=== PATIENT | female | born 1960 | race Caucasian/White ===

== ENCOUNTER 2024-01-27 02:24 | Inpatient (IN) | payer MEDICARE, BC, SELFPAY ==
[2024-01-26 19:22] VITALS: BMI 30.8
[2024-01-26 19:23] VITALS: BP 102/68
[2024-01-26 21:08] VITALS: BP 144/99
[2024-01-26] MEDS: NSS 1000 IV (21:24)
[2024-01-26] MEDS: ZOFRAN 4 MG IV (21:24)
[2024-01-26 21:25] LABS: % Basophils 0.3 % (0-2); % Eosinophils 1.7 % (0-6); % Immature Granulocytes 0.3 % (0-0.5); % Monocytes 6.9 % (1.7-9.3); % Neutrophils 77.8 % (42.2-75.2); Absolute Eosinophils 0.1 10^3/uL (0-0.7); Absolute Lymphocytes 0.9 10^3/uL (1.2-3.4); Absolute Monocytes 0.5 10^3/uL (0.1-0.6); Absolute Neutrophils 5.5 10^3/uL (1.4-6.5); Hematocrit 50.7 % (37.0-47.0); Hemoglobin 17.2 g/dL (12.0-16.0); Mean Corp Hgb Conc. 33.9 g/dL (33.0-37.0); Mean Corpuscular Hgb 31.3 pg (27.0-31.0); Mean Corpuscular Volume 92.2 fL (81.0-99.0); Mean Platelet Volume 9.3 fL (7.4-10.4); Nucleated Red Blood Cells % 0 %; Platelet Count 308 10^3/uL (130-400); Red Cell Dist. Width 13.3 % (11.5-14.5); White Blood Cell Count 7.1 10^3/uL (4.8-10.8)
[2024-01-26] MEDS: DILAUDID 1 MG IV (21:26)
--- NOTE | 2024-01-26 21:33 | ED.GENMED ---
History of Present Illness
General
Chief Complaint: Abdominal Pain
Source: patient
Exam Limitations: none
Time Seen by Provider: 01/26/24 20:27
Nursing documentation reviewed up to this point in time: agreed with
History of Present Illness
History of Present Illness:
63 y/o F with h/o rectal cancer treated with chemo and radiation (not surgical resectioN) 4 years ago in remission
says she started with pain today upper mid abdomen with n/v many times, bilious emesis
she had simliar episode 1 week ago that resolved spontaneously
has been able to pass gas, had bm today that was smaller
no appetite
the pain is constant and severe
never had this pain otherwise previously
no h/o SBO
no h/o pancreatitis
no prior abdomianl surgeries
nothing taken for pain
Past History
Past History
ED Past Medical History: Cancer (rectal) and Hypothyroidism
Social History
Tobacco: Non-smoker
Alcohol: Occasional
Drug: None
Personal:
Living: with family
Review of Systems
Review of Systems
Allergies reviewed?: Yes
All Other Systems: Not applicable
Phy Exam
Physical Exam
Physical Exam:
GENERAL: Alert , uncomfortable, nauseated, moaning,
EYE: pupils equal and reactive
NECK: Supple
ENT: o/p clr, mmm.
CARDIAC: Regular rate and rhythm .
LUNGS: Clear breath sounds bilaterally, no acute respiratory distress, no wheezes/rales/rhonchi
ABDOMEN: Soft, moderate upper abdominal tenderness, mild distention, no r/g, no cvat, normal bowel sounds
NEUROLOGICAL: Alert and oriented, no focal neuro deficits
SKIN: Warm and dry, skin intact.
MUSCULOSKELETAL: No edema, well perfused.
PSYCH: Normal and appropriate interaction.
Course
Orders/Labs/Results
Orders:
Orders
01/26/24 21:07
0.9% Sodium Chloride 1000 ml [Nss] 1,000 ml IV BOLUS
HYDROmorphone [Dilaudid] 1 mg IV NOW STA
Ondansetron Injectable [Zofran] 4 mg IV NOW STA
01/26/24 21:19
Complete Blood Count/With Diff Urgent
Comprehensive Metabolic Panel Urgent
Lipase Urgent
01/26/24 21:54
CT Abd/Pel (IV only)-DH only Urgent
Comment:
Reason For Exam: N/V UPPER ABD PAIN; H/O RECTAL CANCER, NO SURG
Abnormal Lab Results
01/26/24
21:19
RBC 5.50 H 10^6/uL
(4.20-5.40)
Hgb 17.2 H g/dL
(12.0-16.0)
Hct 50.7 H %
(37.0-47.0)
MCH 31.3 H pg
(27.0-31.0)
Absolute Lymphs (auto) 0.9 L 10^3/uL
(1.2-3.4)
Neutrophils % 77.8 H %
(42.2-75.2)
Lymphocytes % 13.0 L %
(20.5-51.1)
BUN 21 H mg/dl
(7-17)
Glucose 137 H mg/dl
(70-99)
Calcium 10.6 H mg/dl
(8.4-10.2)
01/26/24 21:19
01/26/24 21:19
Vital Signs
Initial and Last Documented VS:
Initial Vital Signs
Temp Pulse Resp BP Pulse Ox
97.9 F 111 20 102/68 97
01/26/24 19:23 01/26/24 19:23 01/26/24 19:23 01/26/24 19:23 01/26/24 19:23
Last Documented Vital Signs
Temp Pulse Resp BP Pulse Ox
97.9 F 111 20 126/85 92
01/26/24 19:23 01/26/24 19:23 01/26/24 19:23 01/26/24 23:11 01/26/24 23:15
MDM/Problems Addressed
Differential Diagnosis Includes:
sbo, gastritis, cholelthiasis
MDM/Problems Addressed:
63 y/o F
previous rectal cancer treated with cheom and radiation
here with upper abd pain, nausea/vomiting today
also similar event 1 week ago that resolved
had slight stool today but small
no fever
abd distension, uncomfortable, vomiting
suspicion high for SBO
unable to tolerate po contrast
pain and nauesa controlled with meds
ct confirms SBO
lactate normal
admit to medicine
pt did have treatment at [facility] but never had surgery and requests to stay here.
*Critical Care Note
Total Time (30-74mins, 75-104mins- exclusive of procedures): Not Applicable
ED Attending Note
-
Portions of this chart may have been created with voice recognition software.� Occasional wrong word or��sound alike� substitutions may have occurred due to the inherent limitations of voice recognition software.
Discharge Plan
Departure
Patient Disposition: Admit
Date of Disposition: 01/26/24
Time of Disposition: 23:33
Admit to: Med/Surg
Presentation/result/management discussed w/ accepting MD/DO: Hospitalist
Condition: Fair
Covid-19: Not Applicable
Discharge Problem:
SBO (small bowel obstruction)
Prescriptions:
No Action
sulfasalazine 500 mg Tablet,Delayed Release (/Ec)
0.5 g PO BID
Theragen Tablet
1 tab PO DAILY
levothyroxine 125 mcg tablet
125 mcg PO DAILY
naproxen 500 mg tablet,delayed release (DR/EC)
500 mg PO BID
zolpidem 10 mg tablet
10 mg PO HS
biotin 1,000 mcg Tablet,Chewable
1,000 mcg PO DAILY
Calcium + D 1,200 mg/25 mcg
1 tab PO DAILY
Orencia
1 dose SC Q4W
Referrals:
UNKNOWN - PT DOES,NOT KNOW [Family Provider] -
Interventions
Interventions:
*Risk Screen - Suicide Last Done: 01/26/24 21:31
*General Assessment Last Done: 01/26/24 21:31
*Neglect/Abuse Screening Last Done: 01/26/24 21:31
*ED COVID-19 Vaccine History Last Done: 01/26/24 21:31
VY-Ilvupd-Dduzhwnxog Assessment Last Done: 01/26/24 21:31
Discharge Date and Time
Print Language: ALBANIAN
[2024-01-26 21:48] LABS: ALT (SGPT) 24 U/L (0-35); AST (SGOT) 26 U/L (14-36); Albumin 4.9 g/dl (3.5-5.0); Alkaline Phosphatase 84 U/L (38-126); Blood Urea Nitrogen 21 mg/dl (7-17); Calcium 10.6 mg/dl (8.4-10.2); Carbon Dioxide 30 mmol/L (22-30); Chloride 101 mmol/L (98-107); Estimated Creatinine Clearance 96 ml/min; Glucose 137 mg/dl (70-99); Lipase 208 U/L (23-300); Potassium 4.2 mmol/L (3.5-5.1); Sodium 139 mmol/L (135-145); Total Bilirubin 0.7 mg/dl (0.2-1.3); Total Protein 7.6 g/dl (6.3-8.2); eGFR > 60.00
[2024-01-26 22:00] VITALS: BP 104/73
[2024-01-26 23:11] VITALS: BP 126/85
[2024-01-27] VITALS (7 sets, daily range): BP systolic 98–122; BP diastolic 58–79; BMI 29.6
--- NOTE | 2024-01-27 02:00 | HPS.HSE ---
Family Physician
-
Family Physician: NOT KNOW UNKNOWN - PT DOES
Chief Complaint
-
Abd Pain, N/V
History of Present Illness
Patient is a 63y F with PMH significant for rectal cancer s/p chemo and XRT who presents to ED complaining of abdominal pain and N/V. Patient states that she developed abdominal pain in the lower abdomen last Thursday. She had intermittent pain
Thursday and Thursday with episodes of bilious, non-bloody N/V. Her symptoms then improved and she felt fairly well until today. Today her pain and nausea recurred. Patient had 3-4 episodes of emesis today. With ongoing symptoms she presented to
the ED for further evaluation.
Patient denies any prior history of similar symptoms.
She denies any prior intra-abdominal surgeries.
She did receive chemo as well as XRT in 2019 for rectal cancer.
In the ED, patient is now resting comfortably. She states that she pain and nausea have improved after medications.
She has not had a BM or passed flatus since arrival.
Medical History
Past Medical History
Past Medical History: Reports Other
Additional Past Medical History:
Rectal Cancer s/p Chemo / XRT (2019)
Rheumatoid Arthritis
Hypothyroidism
Past Surgical History: Reports None
Social History
Tobacco: Smoker (Current every day smoker. > 40 pack years total use.)
Alcohol: Occasional
Drug: None
Personal:
Living: With Family
Family History
Family History: Not pertinent
Allergies / Home Medications
Allergies reflects when Allergies were last updated in [facility].
Home Medications with original date entered in [facility]
Allergy/Medication List:
Allergies
Allergy/AdvReac Type Severity Reaction Status Date / Time
No Known Allergies Allergy Verified 01/26/24 19:22
Home Medications
Calcium + D 1 tab PO DAILY 01/26/24
Orencia 1 dose SC Q4W 01/26/24
biotin 1,000 mcg chewable tablet 1,000 mcg PO DAILY 01/26/24
levothyroxine 125 mcg tablet 125 mcg PO DAILY 01/26/24
naproxen 500 mg tablet,delayed release 500 mg PO BID 01/26/24
sulfasalazine 500 mg tablet,delayed release 0.5 g PO BID 01/26/24
therapeutic multivitamin 1 tab PO DAILY 01/26/24
zolpidem 10 mg tablet 10 mg PO HS 01/26/24
Review of Systems
-
History Source: Patient
A 12 point ROS was completed and negative except as noted: Yes
Constitutional: Denies Fever or Chills
EENT: Denies Sore Throat
Respiratory: Denies Cough or Trouble Breathing
Cardiac: Denies Chest Pain or Palpitations
Abdomen/GI: Reports Abdominal Pain, Nausea and Vomiting; Denies Diarrhea, Constipated, Bloody Stools or Black Stools
: Denies Dysuria, Frequency or Flank Pain
Musculoskeletal: Denies Joint Pain or Edema
Neurological: Denies Dizzy or Headache
Psych: Denies Depression or Anxiety
Physical Exam
Vital Signs
Vital Signs
Temp Pulse Resp BP Pulse Ox
97.9 F 93 20 112/79 95
01/26/24 19:23 01/26/24 23:52 01/26/24 19:23 01/27/24 01:00 01/27/24 01:45
Physical Exam
General: Other (63y F in no acute distress.)
HEENT: Moist mucous membranes and PERRLA
Respiratory: Clear; No Wheezes, Rales or Rhonchi
Cardiac: S1/S2 and Regular Rhythm; No Murmur
GI: Other (Obese, decreased bowel sounds. Pos tenderness R abdomen without rebound / guarding.)
Musculoskeletal: No Clubbing, No Cyanosis and No Edema
Neuro: AO x 3
Laboratory Results
-
01/26/24 21:19
01/26/24 21:19
Laboratory Results
Total Bilirubin 0.7 mg/dl (0.2-1.3) 01/26/24 21:19
AST 26 U/L (14-36) 01/26/24 21:19
ALT 24 U/L (0-35) 01/26/24 21:19
Alkaline Phosphatase 84 U/L (38-126) 01/26/24 21:19
Lipase 208 U/L (23-300) 01/26/24 21:19
Impression/Plan
-
A/P: Patient is a 63y F with PMH significant for rectal cancer who presents to ED complaining of abdominal pain and N/V.
SBO
- Admit for further evaluation and treatment.
- CT scan done in the ED shows SBO with transition point identified in the R pelvis area.
- Suspect this is secondary to prior XRT as patient has no history of intra-abdominal surgeries.
- No BM / flatus thus far.
- Monitor for any new / recurrent symptoms.
- Supportive care, NPO, IVFs, antiemetics, etc.
- Consider NG decompression if pain or nausea recurs.
- Surgery evaluation for additional recommendations.
- Follow for clinical improvement.
History of Rectal Cancer
- s/p chemo and XRT in 2019.
- Up to date with follow-up with Colorectal Surgeon at [facility] (Dr. Almeida).
Rheumatoid Arthritis
- Stable. No current flare / joint pain / etc.
- Hold outpatient medications acutely.
Hypothyroidism
- Stable. Continue T4 supplementation.
DVT Prophylaxis: SCDs
Code Status: Full
[2024-01-27] MEDS: NSS 1000 IV ×2 (03:07→13:27)
--- NOTE | 2024-01-27 03:41 | PTCARENOTE ---
Rc'd Patient from ER. Stable vitals. Offers no complaints. NPO. POC reviewed with the patient.
[2024-01-27] MEDS: SYNTHROID 125 MCG PO (06:20)
[2024-01-27 06:57] LABS: Hematocrit 40.7 % (37.0-47.0); Hemoglobin 13.9 g/dL (12.0-16.0); Mean Corp Hgb Conc. 34.2 g/dL (33.0-37.0); Mean Corpuscular Hgb 31.4 pg (27.0-31.0); Mean Corpuscular Volume 91.9 fL (81.0-99.0); Mean Platelet Volume 9.5 fL (7.4-10.4); Platelet Count 258 10^3/uL (130-400); Red Blood Cell Count 4.43 10^6/uL (4.20-5.40); Red Cell Dist. Width 13.4 % (11.5-14.5); White Blood Cell Count 3.9 10^3/uL (4.8-10.8)
[2024-01-27 07:22] LABS: Blood Urea Nitrogen 20 mg/dl (7-17); Calcium 9.2 mg/dl (8.4-10.2); Carbon Dioxide 28 mmol/L (22-30); Chloride 107 mmol/L (98-107); Estimated Creatinine Clearance 94 ml/min; Glucose 112 mg/dl (70-99); Potassium 4.7 mmol/L (3.5-5.1); Sodium 140 mmol/L (135-145); eGFR > 60.00
--- NOTE | 2024-01-27 07:26 | CON.GS ---
Addendum entered and electronically signed by Kevin Wesley MD 01/27/24 13:36:
I saw and examined the patient.
The resident's note was reviewed and I agree with the note.
Comment: 63F with h/o chemo-XRT in 2019 for rectal CA p/w psbo. She has had significant clinical improvement overnight with resolution of pain and nausea, now passing flatus. Abd exam obese, soft, nt, nd. Plan for trial of clears. Can adv to [facility]
tonight and [facility] in the am if no issues. Will follow
Original Note:
Consultation
-
Performing Provider: Varinder Lyons MD ; Kevin Wesley MD
Reason for Consultation: Abdominal pain
Medical History
-
Chief Complaint: Abdominal pain
History of Present Illness:
General surgery was consulted for concerns of small bowel obstruction in this patient.
63-year-old female with history of rectal cancer treated with chemotherapy and radiation in 2019(no surgeries) presented to the emergency department with abdominal pain associated with nausea for 1 day. Patient stated that she had 1 episode of
similar pain last week that resolved spontaneously. Denies any previous history of small bowel obstruction, denies any previous abdominal surgeries. Reports she is able to pass gas now but no stools. At the time of consultation patient reports
her nausea and pain has improved since she is n.p.o. and received some pain medications.
Patient denies any recent travel, dietary changes.
CT findings are highly suggestive of small bowel obstruction with caliber transition within the distal ileum and the right posterior pelvis. There is fluid within the mesentery adjacent to dilated small bowel loops, as well as a small to moderate
amount of fluid within the pelvic cul-de-sac, small amount of fluid in the right upper quadrant adjacent to the liver, and minimal fluid adjacent to the spleen in the left upper quadrant. These findings likely represent transudation of fluid from
small bowel obstruction.
Past Medical History
Past Medical History: Hypothyroidism and Other (Rheumatoid arthritis)
Past Surgical History: None
Social History
Tobacco: Smoker (Daily. > [id number])
Alcohol: Occasional
Drug: None
Personal:
Living: With Family
Family History
Family History: Reviewed & Not Pertinent
Allergies / Home Medications
Allergy/AdvReac Type Severity Reaction Status Date / Time
No Known Allergies Allergy Verified 01/26/24 19:22
�Medication �Instructions �Recorded �Confirmed �Type
Calcium + D 1 tab PO DAILY 01/26/24 01/26/24 History
Orencia 1 dose SC Q4W 01/26/24 01/26/24 History
biotin 1,000 mcg chewable tablet 1,000 mcg PO DAILY 01/26/24 01/26/24 History
levothyroxine 125 mcg tablet 125 mcg PO DAILY 01/26/24 01/26/24 History
naproxen 500 mg tablet,delayed 500 mg PO BID 01/26/24 01/26/24 History
release
sulfasalazine 500 mg 0.5 g PO BID 01/26/24 01/26/24 History
tablet,delayed release
therapeutic multivitamin 1 tab PO DAILY 01/26/24 01/26/24 History
zolpidem 10 mg tablet 10 mg PO HS 01/26/24 01/26/24 History
Review of Systems
-
History Source: Patient
Constitutional: Fever
Respiratory: No Symptoms
Cardiac: No Symptoms
Abdomen/GI: Abdominal Pain (Improving)
Neurological: No Symptoms
A 10 point review of systems was completed, and was negative except as per HPI.
Physical Exam
Vital Signs
Temp Pulse Resp BP Pulse Ox
98.3 F 111 20 98/78 96
01/27/24 02:52 01/27/24 02:52 01/27/24 02:52 01/27/24 02:52 01/27/24 02:52
01/26/24 01/27/24 01/28/24
06:59 06:59 06:59
Actual Weight 85.786 kg
Body Mass Index (BMI) 29.6
Lab Results
01/27/24 06:26
01/27/24 06:26
WBC 3.9 10^3/uL (4.8-10.8) L 01/27/24 06:26
Hgb 13.9 g/dL (12.0-16.0) 01/27/24 06:26
Hct 40.7 % (37.0-47.0) 01/27/24 06:26
Plt Count 258 10^3/uL (130-400) 01/27/24 06:26
Abs Immat Gran (auto) 0.0 10^3/uL (0-0.05) 01/26/24 21:19
Neutrophils % 77.8 % (42.2-75.2) H 01/26/24 21:19
Physical Exam
General: Comfortable
GI: Soft, Non Tender and Non Distended
Skin: Warm and Dry
Neuro: Awake, Alert and Oriented
Psych: Calm
Data Reviewed
-
CT Scan: Image Personally Visualized and interpreted, Report Reviewed by me, Discussed with Physician and Discussed with Patient
Labs: Labs Reviewed by me, Discussed with Physician and Discussed with Patient
Total Time Spent with Patient (in minutes): 20
Assessment / Plan
-
63-year-old female with PMHx of rectal cancer s/p chemo and XRT presented with abdominal pain and N/V. CT concerning for SBO.
Small bowel obstruction-likely secondary to prior XRT
-CT in the ED shows SBO with transition point identified in the right pelvis area
-Significant clinical improvement since NPO
-Trial of clear going into full for dinner today
-+ flatus, No BM thus far
GI ppx: Iv protonix
[2024-01-27] MEDS: PROTONIX IV 40 MG IV (08:12)
[2024-01-27] MEDS: NSS (PRESERVATIVE FREE) 10 ML IV (08:12)
--- NOTE | 2024-01-27 09:40 | W.PN.HOSP.TC ---
Today's Communication/Plan
-
await surgery input
Assessment / Plan
Assessment / Plan
pt is a 63 year old female
SBO--CT scan done in the ED shows SBO with transition point identified in the R pelvis area--Suspect this is secondary to prior XRT as patient has no history of intra-abdominal surgeries--No BM/flatus thus far--Supportive care, NPO, IVFs,
antiemetics, etc.--await surgery input
History of Rectal Cancer--s/p chemo and XRT in 2019--Up to date with follow-up with Colorectal Surgeon at [facility] (Dr. Almeida).
Rheumatoid Arthritis--Stable. No current flare / joint pain / etc--Hold outpatient medications acutely.
Hypothyroidism-- Stable. Continue T4 supplementation.
DVT Prophylaxis: SCDs
Code Status: Full
Anticipated Discharge: 24 - 48 hours
Subjective/Interval History
-
Date of Service: January 27, 2024
pt passing gas, has no pain, wants something to drink
Objective Data
-
Labs:
Laboratory Results
01/26/24 01/27/24
21:19 06:26
WBC 3.9 L
Hgb 13.9
Hct 40.7
Plt Count 258
Sodium 139 140
Potassium 4.2 4.7
Chloride 101 107
Carbon Dioxide 30 28
BUN 21 H 20 H
Creatinine 0.7 0.7
Glucose 137 H 112 H
Calcium 10.6 H 9.2
Total Bilirubin 0.7
AST 26
ALT 24
Alkaline Phosphatase 84
Vital Signs:
max temp for 24 hours
01/27/24
07:30
Temp 98.3 F
Vital Signs
Temp Pulse Resp BP Pulse Ox
98.3 F 95 16 105/71 95
08/14/24 07:30 01/27/24 07:30 01/27/24 07:30 01/27/24 07:30 01/27/24 07:30
I&O
01/26/24 01/27/24 01/28/24
06:59 06:59 06:59
Intake Total 120 / 120
Balance 120 / 120
Review of Systems
-
All other systems: Reviewed and negative
Physical Exam
-
General: Well Developed, Well Nourished and No Apparent Distress
HEENT: Normocephalic and Atraumatic
Respiratory: Clear to Auscultation; Negative Wheezes or Rhonchi
Cardiac: Regular Rhythm and S1/S2; Negative Murmur
GI: Soft, Nontender and Nondistended; Negative Normal Bowel Sounds (hypoactive)
Musculoskeletal: No Clubbing, No Cyanosis and No Edema
Skin: Warm
Neuro: Awake and Alert
Psych: Calm
--- NOTE | 2024-01-27 10:02 | CM ---
Patient seen at bedside with physician. Patient states that she lives in a 2 story home with her . [facility]. Patient uses the [facility] in [place] and plan is for home with no
needs. CM will continue to follow for discharge planning needs. CM will continue to follow for discharge planning needs.
Plan; home with no needs vs home with VN
[2024-01-27] MEDS: AMBIEN 10 MG PO (23:05)
--- NOTE | 2024-01-27 23:09 | PTCARENOTE ---
tolerating clear liquids- drinkng alot- urinating often- crnp dc'd iv fluids
[2024-01-28] MEDS: SYNTHROID 125 MCG PO (05:19)
--- NOTE | 2024-01-28 06:52 | W.PN.GS2 ---
Addendum entered and electronically signed by Felix Martin MD 01/28/24 10:43:
Patient seen and examined in follow-up with resident. Agree with documented progress note.
Presenting symptoms resolved. Full return of GI function.
AFVSS
ABD: Soft, nondistended, nontender
A/P: 63-year-old female presenting with possible PSBO versus enteritis which has quickly clinically resolved
Stable for discharge
Would generally take caution with low residue diet for 1 to 2 weeks
No further outpatient surgical follow-up or imaging recommended
Original Note:
Today's Communication / Plan
-
Discharge home today
Assessment / Plan
-
63-year-old female with history of chemo-XRT in 2019 for rectal CA P/W PSBO.
-No complaints today
-Had a good night sleep
-Able to tolerate low-dose of
-Discharge home today
Time Spent
Total Time Spent with Patient (in minutes): 15
Subjective Data
-
Date of Service: January 28, 2024
Significant improvement in pain. Passing flatus and stools. Denies nausea and vomiting.
Objective Data
-
Intake and Output
01/26/24 01/27/24 01/28/24
06:59 06:59 06:59
Intake Total 120 / 120 2099 / 2100
Balance 120 / 120 2099 / 2099
Intake:
Oral fluids 120 / 120 1600 / 1600
IV fluids (Total) 0 / 0 500 / 500
IV piggybacks 0 / 0
Other:
Number of approximated MODERATE 1 2
amounts of urine
Number of approximated LARGE 8
amounts of urine
Vital Signs
Temp Pulse Resp BP Pulse Ox
98.3 F 83 16 122/79 98
01/27/24 23:00 01/27/24 23:00 01/27/24 23:00 01/27/24 23:00 01/27/24 23:22
Calcium 9.2 mg/dl (8.4-10.2) 01/27/24 06:26
Total Bilirubin 0.7 mg/dl (0.2-1.3) 01/26/24 21:19
AST 26 U/L (14-36) 01/26/24 21:19
ALT 24 U/L (0-35) 01/26/24 21:19
Alkaline Phosphatase 84 U/L (38-126) 01/26/24 21:19
Total Protein 7.6 g/dl (6.3-8.2) 01/26/24 21:19
Albumin 4.9 g/dl (3.5-5.0) 01/26/24 21:19
Physical Exam
-
General: No apparent distress
Abdomen: Soft, nontender, nondistended
[2024-01-28 07:15] VITALS: BP 122/78
[2024-01-28] MEDS: PROTONIX IV 40 MG IV (07:58)
[2024-01-28] MEDS: NSS (PRESERVATIVE FREE) 10 ML IV (07:58)
[2024-01-28 08:11] LABS: Hemoglobin 12.8 g/dL (12.0-16.0); Mean Corp Hgb Conc. 32.8 g/dL (33.0-37.0); Mean Corpuscular Hgb 30.4 pg (27.0-31.0); Mean Corpuscular Volume 92.6 fL (81.0-99.0); Mean Platelet Volume 9.7 fL (7.4-10.4); Platelet Count 274 10^3/uL (130-400); Red Blood Cell Count 4.21 10^6/uL (4.20-5.40); Red Cell Dist. Width 13.5 % (11.5-14.5); White Blood Cell Count 5.2 10^3/uL (4.8-10.8)
[2024-01-28 08:33] LABS: Blood Urea Nitrogen 10 mg/dl (7-17); Calcium 9.5 mg/dl (8.4-10.2); Carbon Dioxide 30 mmol/L (22-30); Chloride 101 mmol/L (98-107); Estimated Creatinine Clearance 109 ml/min; Glucose 88 mg/dl (70-99); Magnesium 2.2 mg/dl (1.6-2.3); Potassium 4.4 mmol/L (3.5-5.1); Sodium 137 mmol/L (135-145); eGFR > 60.00
--- NOTE | 2024-01-28 09:24 | W.PN.HOSP.TC ---
Today's Communication/Plan
-
likely d/c
Assessment / Plan
Assessment / Plan
pt is a 63 year old female
SBO--CT scan done in the ED shows SBO with transition point identified in the R pelvis area--resolved--Suspect this is secondary to prior XRT as patient has no history of intra-abdominal surgeries--apprec surgery input--tolerating diet--likely d/c
this afternoon
History of Rectal Cancer--s/p chemo and XRT in 2019--Up to date with follow-up with Colorectal Surgeon at [facility] (Dr. Almeida).
Rheumatoid Arthritis--Stable. No current flare / joint pain / etc--Hold outpatient medications acutely.
Hypothyroidism-- Stable. Continue T4 supplementation.
DVT Prophylaxis: SCDs
Code Status: Full
Anticipated Discharge: Today
Subjective/Interval History
-
Date of Service: January 28, 2024
pt tolerating diet
Objective Data
-
Labs:
Laboratory Results
01/28/24
07:09
WBC 5.2
Hgb 12.8
Hct 39.0
Plt Count 274
Sodium 137
Potassium 4.4
Chloride 101
Carbon Dioxide 30
BUN 10
Creatinine 0.6
Glucose 88
Calcium 9.5
Vital Signs:
max temp for 24 hours
01/27/24
15:45
Temp 98.6 F
Vital Signs
Temp Pulse Resp BP Pulse Ox
98.4 F 91 16 122/78 93
01/28/24 07:15 01/28/24 07:15 01/28/24 07:15 01/28/24 07:15 01/28/24 08:00
I&O
01/27/24 01/28/24 01/29/24
06:59 06:59 06:59
Intake Total 120 / 120 2099
Balance 120 / 120 2099
Review of Systems
-
All other systems: Reviewed and negative
Physical Exam
-
General: Well Developed, Well Nourished and No Apparent Distress
HEENT: Normocephalic and Atraumatic
Respiratory: Clear to Auscultation; Negative Wheezes or Rhonchi
Cardiac: Regular Rhythm and S1/S2; Negative Murmur
GI: Soft, Nontender, Nondistended and Normal Bowel Sounds
Musculoskeletal: No Clubbing, No Cyanosis and No Edema
Neuro: Awake
Psych: Calm
--- NOTE | 2024-01-28 09:30 | CM ---
Patient seen at bedside with physician. Patient for possible discharge later today. Patient reviewed IMM and signed form placed on chart. Patient to transfer to home. CM will continue to follow for discharge planning needs.
Plan; home with no needs.
[2024-01-28 11:00] VITALS: BP 138/71
--- NOTE | 2024-01-28 18:36 | W.DCSUMMARY ---
Discharge Summary
Discharge Data
Date of Admission: 01/27/24
Date of Discharge: 01/28/24
-
Pending Results: No
Hospital Course
Primary care physician : Not listed
Principal Discharge diagnosis : Small bowel obstruction
Chronic Discharge diagnosis : History of rectal cancer, rheumatoid arthritis, hypothyroidism
Hospital Course : Patient is a 63-year-old female with a history of rectal cancer status postchemotherapy and radiation therapy who presented with abdominal pain and nausea vomiting. She stated that this pain developed in her lower abdomen since
the Thursday prior to admission. She had intermittent pain both Thursday and Thursday with episodes of bilious nonbloody vomiting. She then improved and felt fairly well until the day of admission. Her pain and nausea recurred. She denied any
prior intra-abdominal surgeries. She received chemotherapy as well as radiation therapy in 2019 and 2020 for rectal cancer. Patient was admitted.
Problem #1: Small bowel obstruction. Patient had a CAT scan done in the emergency department which showed findings suggestive of small bowel obstruction with caliber transition within the distal ileum in the right posterior pelvis. Full report is
listed below. She was made n.p.o. with IV fluids. She was seen in consultation by general surgery. This was thought to be secondary to her previous radiation. After bowel rest, patient started moving her bowels. Her diet was advanced. She is
tolerating solid food at this time.
Problem #2: All other medical issues. These include History of rectal cancer, rheumatoid arthritis, hypothyroidism. These medical issues were stable during her hospitalization. Medications were continued as able.
Patient is stable for discharge home at this time. If there are any questions regarding this dictation or hospital stay please not hesitate to call. Our office number is [phone].
Important imaging findings :
CT SCAN ABDOMEN/PELVIS IMPRESSION: As described, CT findings are highly suggestive of small bowel obstruction with caliber transition within the distal ileum and the right posterior pelvis. There is fluid within the mesentery adjacent to dilated
small bowel loops, as well as a small to moderate amount of fluid within the pelvic cul-de-sac, small amount of fluid in the right upper quadrant adjacent to the liver, and minimal fluid adjacent to the spleen in the left upper quadrant. These
findings likely represent transudation of fluid from small bowel obstruction.
No evidence of free intraperitoneal air.
Bony degenerative changes as described.
Patchy sclerosis involving the anterolateral sacral ala bilaterally, possibly representing changes from radiation therapy. This could also possibly be from old insufficiency fracture.
Discharge Plan
-
Patient Disposition: Home (Routine Discharge)
Discharge Diagnosis/Procedures: Small bowel obstruction, history of rectal cancer, rheumatoid arthritis, hypothyroidism
Condition: Good
Diet: As tolerated
Activity: As tolerated
Driving Restrictions: As prior to admission
Bathing Restrictions: None
Referrals:
UNKNOWN - PT DOES,NOT KNOW [Family Provider] - in less than 1 week
Prescriptions:
Continued
sulfasalazine 500 mg Tablet,Delayed Release (Dr/Ec)
0.5 g PO BID
therapeutic multivitamin Tablet
1 tab PO DAILY
levothyroxine 125 mcg tablet
125 mcg PO DAILY
naproxen 500 mg tablet,delayed release (DR/EC)
500 mg PO BID
zolpidem 10 mg tablet
10 mg PO HS
biotin 1,000 mcg Tablet,Chewable
1,000 mcg PO DAILY
Calcium + D 1,200 mg/25 mcg
1 tab PO DAILY
Orencia
1 dose SC Q4W
Discharge Orders:
Discharge Patient (As Directed); Ordered 01/28/24
Ordered By: Sandhya Whipple
Discharge Date and Time
Discharge Date/Time: 01/28/24 13:10
Print Language: COMORAN
== END 2024-01-28 13:10 | disposition home or self-care (01) | DRG 390 ==
LOC: 2 SOUTH 02:24
PROVIDERS: Physician Assistant; ADMITTING PHYSICIAN Hospitalist; ATTENDING PHYSICIAN Internal Medicine; CONSULT PHYSICIAN Surgery; EMERGENCY PHYSICIAN Emergency Medicine
DX: K56.690 Other partial intestinal obstruction (principal); E03.9 Hypothyroidism, unspecified; M06.9 Rheumatoid arthritis, unspecified; F17.210 Nicotine dependence, cigarettes, uncomplicated; E66.9 Obesity, unspecified; Z68.29 Body mass index [BMI] 29.0-29.9, adult; Z85.048 Personal history of other malignant neoplasm of rectum, rectosigmoid junction, and anus; Z92.21 Personal history of antineoplastic chemotherapy; Z92.3 Personal history of irradiation; Z79.890 Hormone replacement therapy
CPT/HCPCS: 74177; 80048; 80053; 83690; 83735; 85025; 85027; 99285; 99406; Q9967